=== PATIENT | male | born 1965 | race African-American/Black ===

== ENCOUNTER → 2017-02-22 | Day surgery (SDC) | payer MEDICARE, OTHER ==
[~2017-02-22] MED LIST: ATENOLOL25 MG PO; METFORMIN PO; ZYPREXA20 MG PO
--- NOTE | ~2017-02-22 | OR ---
Unit #: [id number] #: [id number] Patient: ABIODUN MART [id number] [address] [address] [id number] MR#: [id number] NAME: ABIODUN MART ROOM: Date of Procedure: 02/22/2017 Admission Date: 02/22/2017 Surgeon: Trever Chamberlain M.D. : 1965 Attending Physician: Trever Chamberlain M.D. OPERATIVE REPORT PROCEDURE PERFORMED Colonoscopy with snare polypectomy. INDICATIONS FOR PROCEDURE Average risk for colorectal cancer. MEDICATIONS Monitored anesthesia. POSTOPERATIVE FINDINGS 1. Polyps 2 to 3 mm each, snared and sent for histopathology in the rectum. 2. Rest of the colon exam up to cecum was normal. 3. Prep was good. PLAN If adenomatous, repeat colonoscopy in 5 years, otherwise in 10 years. DESCRIPTION OF PROCEDURE The patient was explained of the procedure, risks, and benefits along with risks and benefits of anesthesia. He was brought to the endoscopy room. Propofol anesthesia was given. Rectal exam was done, which was normal. Colonoscope was lubricated, passed up the rectum, advanced under direct vision all the way to the cecum. Cecum was identified by ileocecal valve and appendiceal orifice. I then started to pull the scope out carefully looking. Polyp seen in the rectum was snared and sent for histopathology. Rest of the mucosa was normal and healthy. Prep was good. I retroflexed in the rectum, internal hemorrhoids noted. Gently, the scope was pulled out. He tolerated it well. No major complications were seen. Dictated by... April Mcmillan/juana TD: 02/23/2017 11:07 JOB #: [id number] CC: Kizzy Braswell M.D. Unit #: [id number] #: [id number] Patient: ABIODUN MART OPERATIVE REPORT Page 1 of 1 X Trever Chamberlain MD X PROCEDURE OPERATIVE NOTE
== END | disposition home or self-care (01) ==
LOC: COPS 09:44
PROVIDERS: Internal Medicine
PROC: 0DBP8ZX Excision of Rectum, Via Natural or Artificial Opening Endoscopic, Diagnostic (ICD-10-PCS; principal; 2017-02-22 11:00)
DX: Z12.11 Encounter for screening for malignant neoplasm of colon (principal); D12.8 Benign neoplasm of rectum; K64.8 Other hemorrhoids; E11.9 Type 2 diabetes mellitus without complications; Z79.84 Long term (current) use of oral hypoglycemic drugs; F17.200 Nicotine dependence, unspecified, uncomplicated; Z79.899 Other long term (current) drug therapy; Z95.810 Presence of automatic (implantable) cardiac defibrillator; Z95.5 Presence of coronary angioplasty implant and graft; Z88.8 Allergy status to other drugs, medicaments and biological substances
CPT/HCPCS: 82947; 88305

== ENCOUNTER 2017-07-19 22:46 | Emergency (ER) | payer MEDICARE, OTHER ==
[~2017-07-19] VITALS: Ht 175.3 cm; Wt 113.4 kg
--- NOTE | ~2017-07-19 | EKG ---
PATIENT: ABIODUN MART UNIT #: [id number] Ventricular Rate: 55 BPM Atrial Rate: 55 BPM P-R Interval: 216 ms QRS Duration: 106 ms Q-T Interval: 444 ms QTC Calculation(Bezet): 424 ms P [place]: 67 degrees Calculated R [place]: 13 degrees Calculated T [place]: -71 degrees Diagnosis Line: Sinus bradycardia with 1st degree A-V block Diagnosis Line: Possible Left atrial enlargement Diagnosis Line: Inferior infarct , age undetermined Diagnosis Line: T wave abnormality, consider lateral ischemia Diagnosis Line: Abnormal ECG Diagnosis Line: No previous ECGs available Diagnosis Line: Confirmed by LA NENA RUIZ MD ([id number]) on Diagnosis Line: 07/21/2017 4:47:33 PM INTERPRETING MD: IRIS
[2017-07-20 00:18] LABS: BASOPHIL# 0.1 X10e3 (0-0.3); BASOPHIL% 0.9 % (0-2.5); DIFF IND NO; EOSINOPHIL# 0.1 X10e3 (0-0.7); EOSINOPHIL% 0.7 % (0.0-7.0); HEMATOCRIT 45.3 % (38.0-50.0); HEMOGLOBIN 14.8 gm/dL (13.0-16.0); LYMPHOCYTE# 2.2 X10e3 (1.0-3.5); LYMPHOCYTE% 26.1 % (17.0-45.0); MEAN CELL VOLUME 93.9 FL (83-96); MEAN CORPUSCULAR HEMOGLOBIN 30.7 PG (28-34); MEAN CORPUSCULAR HGB CONC 32.7 g/dL (30-36); MEAN PLATELET VOLUME 9.1 FL (6.5-11.5); MONOCYTE# 0.6 X10e3 (0-1.0); MONOCYTE% 6.8 % (3.0-12.0); NEUTROPHIL# 5.5 X10e3 (1.5-7.1); NEUTROPHIL% 65.5 % (40-75); PLATELET COUNT 244 X10e3 (140-420); RED BLOOD COUNT 4.82 X10e (3.90-5.60); RED CELL DISTRIBUTION WIDTH 13.9 % (11.0-15.5); WHITE BLOOD COUNT 8.5 X10e3 (4.0-10.5)
[2017-07-20 00:36] LABS: ALBUMIN SERUM 3.9 g/dL (3.5-5.0); BILIRUBIN, DIRECT 0.1 mg/dL (0.0-0.2); BILIRUBIN,INDIRECT 0.5 mg/dL (0.0-0.9); BILIRUBIN,TOTAL 0.6 mg/dL (0.2-2.0); BUN/CREATININE RATIO 14.37; CALCIUM SERUM 9.3 mg/dL (8.4-10.2); CREATININE SERUM 1.6 mg/dL (0.6-1.4); GLOM FILT RATE Estimated 56.2 mL/min (>60); POTASSIUM 4.7 mmol/L (3.5-5.1)
== END 2017-07-20 01:24 | disposition home or self-care (01) ==
LOC: CED 22:46
PROVIDERS: Emergency Medicine
DX: R42 Dizziness and giddiness (principal); N28.9 Disorder of kidney and ureter, unspecified; I25.10 Atherosclerotic heart disease of native coronary artery without angina pectoris; I11.9 Hypertensive heart disease without heart failure; E11.9 Type 2 diabetes mellitus without complications; F20.9 Schizophrenia, unspecified; F17.200 Nicotine dependence, unspecified, uncomplicated; Z88.8 Allergy status to other drugs, medicaments and biological substances
CPT/HCPCS: 36415; 80048; 80076; 82947; 85025; 93005; 96361; 96374; 99284; J1100